=== PATIENT | female | born 1985 | race Two or more races ===

== ENCOUNTER 2022-09-20 15:20 | Emergency (ER) | payer SELFPAY ==
[~2022-09-20] VITALS: Ht 152.4 cm; Wt 90.7 kg
--- NOTE | 2022-09-20 15:45 | NUR ---
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 ANXIOUS BALLISTICS TESTER. AMBULATORY, PLACED ON BED, HYPERVENTILATING NOTED, SATURATING AT 98%RA.
--- NOTE | 2022-09-20 16:40 | NUR ---
ASSISTANT CONSTRUCTION SUPERINTENDENT AT BEDSIDE
--- NOTE | 2022-09-20 16:48 | NUR ---
SWAB FOR COVID19 AND RAPID INFLUENZA SENT TO LAB
[2022-09-20 17:04] LABS: BASOPHILS % (AUTO) 0.1 % (0.0-2.0); EOSINOPHILS % (AUTO) 0.5 % (0.0-6.0); HEMATOCRIT 40 % (33-45); LYMPHOCYTES # (AUTO) 2.1 K/uL (0.8-4.8); LYMPHOCYTES % (AUTO) 21.9 % (20.0-44.0); MEAN CORPUSCULAR HGB CONC 33 g/dl (31.0-36.0); MEAN CORPUSCULAR VOLUME 86 fL (82-100); MONOCYTES # (AUTO) 0.4 K/uL (0.1-1.30); MONOCYTES % (AUTO) 4.2 % (2.0-12.0); NEUTROPHILS # (AUTO) 7.1 K/uL (1.8-8.9); NEUTROPHILS % (AUTO) 73.3 % (43.0-81.0); PLATELET COUNT (AUTO) 289 K/uL (150-450); RED BLOOD CELL COUNT(AUTO) 4.67 MIL/uL (4.0-5.2); WHITE BLOOD COUNT (AUTO) 9.6 K/uL (4.3-11.0)
[2022-09-20 17:17] LABS: ALBUMIN 3.5 g/dL (3.4-5.0); BILIRUBIN,TOTAL 0.4 mg/dL (0.2-1.0); CALCIUM, SERUM 8.3 mg/dL (8.5-10.1); CREATININE 0.9 mg/dL (0.6-1.3); POTASSIUM 3.7 mmol/L (3.5-5.1); TOTAL PROTEIN, SERUM 7.2 g/dL (6.4-8.2)
--- NOTE | 2022-09-20 19:10 | NUR ---
PATIENT TAKEN TO CT VIA [facility]
[2022-09-20] MEDS ORDERED: IOHEXOL-350 100 ML VIAL IV ONE (19:14)
[2022-09-21] MEDS ORDERED: CARB15DR12 EACH EAR (00:41)
[2022-09-21] MEDS ORDERED: IBUP-1953 PO (00:52)
[2022-09-21 01:12] VITALS: BP 123/88
--- NOTE | 2022-09-21 01:12 | NUR ---
Patient discharged to home in stable condition. Written and verbal after care instructions given. Patient verbalizes understanding of instruction.
== END 2022-09-21 01:12 | disposition home or self-care (01) ==
LOC: ER 15:20
DX: R07.9 Chest pain, unspecified (principal); R06.00 Dyspnea, unspecified; K80.20 Calculus of gallbladder without cholecystitis without obstruction; H61.22 Impacted cerumen, left ear; R42 Dizziness and giddiness; Z20.822 Contact with and (suspected) exposure to COVID-19; Z88.0 Allergy status to penicillin; R73.9 Hyperglycemia, unspecified; E66.9 Obesity, unspecified; Z68.39 Body mass index [BMI] 39.0-39.9, adult
CPT/HCPCS: 99285; 71275; 76705; 71045; 87426; 93005; 87804; 85025; 85378; 84703; 36415; 80053; 84484 ×2; Q9967; C9803